=== PATIENT | female | born 1985 | race Caucasian/White ===

== ENCOUNTER 2022-07-08 14:49 | Emergency (ER) | payer OTHER ==
[2022-07-08] MEDS ORDERED: IBUPROFEN 800 MG TABLET PO STA (15:03)
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
[2022-07-08 15:58] VITALS: BP 127/96
== END 2022-07-08 16:06 | disposition home or self-care (01) ==
LOC: ED 14:49
DX: S20.219A Contusion of unspecified front wall of thorax, initial encounter (principal); V49.49XA Driver injured in collision with other motor vehicles in traffic accident, initial encounter
CPT/HCPCS: 71046; 93005; 99282; 99283; A9270